=== PATIENT | female | born 1970 | race African-American/Black ===

== ENCOUNTER 2016-09-26 18:18 | Emergency (ER) | payer OTHER ==
[~2016-09-26] VITALS: Ht 170.2 cm; Wt 127.0 kg
[~2016-09-26 18:18] MED LIST: VENTAER INH
[2016-09-26 18:28] VITALS: BP 168/101; PULSE 97; RESP 20; TEMP 98.1; O2SAT 96
[2016-09-26] MEDS ORDERED: GABA300C5 PO (19:18)
[2016-09-26] MEDS ORDERED: FURO1TAB60 PO (19:18)
--- NOTE | 2016-09-26 19:40 | RADRPT ---
EXAM DATE/TIME: 09/26/2016 19:28 [facility] COMPARISON: No previous studies available for comparison. INDICATIONS : Rolled right ankle 4 days ago, pain on anterior ankle at 4th metatarsal. MEDICAL HISTORY : None. SURGICAL HISTORY : None. ENCOUNTER: Initial ACUITY: 4 - 6 days PAIN SCORE: 0/10 LOCATION: Right ankle FINDINGS: There is diffuse soft tissue swelling. No fracture or subluxation demonstrated. 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 CONCLUSION: Soft tissue swelling without fracture. Bairon Marsh MD on September 26, 2016 at 19:38 Board Certified Radiologist. This report was verified electronically.
[2016-09-26] MEDS ORDERED: DICL75TA PO (20:00)
--- NOTE | 2016-09-26 20:05 | PD ---
HPI Chief Complaint: Injury Time Seen by Provider: 20:00 Travel History International Travel<30 days: No Contact w/Intl Traveler<30days: No Traveled to known affect area: No History of Present Illness HPI 46-year-old black female presents to emergency department with complains of right ankle pain after he injury 4 days ago. She states that the pain is moderate and worse with walking. Some relief with elevation. She has been out of work for the last few days. She denies any numbness, tingling or weakness. No other injury. [facility] Past Medical History Narrative Medical Hypertension Diminished Hearing: No Hypertension: Yes Thyroid Disease: Yes Tetanus Vaccination: Unknown ?: Not Social History Alcohol Use: Yes (6OZ DAILY) Tobacco Use: Yes (1 PPD) Substance Use: No Allergies-Medications (Allergen,Severity, Reaction): Coded Allergies: No Known Allergies (Verified , 09/26/16) Reported Meds & Prescriptions Reported Meds & Active Scripts Active Diclofenac Sodium DR (Diclofenac Sodium) 75 Mg Tabdr 75 Mg PO BID Reported Gabapentin 300 Mg Cap 300 Mg PO DAILY Lasix (Furosemide) 40 Mg Tab 40 Mg PO DAILY Review of Systems Except as stated in HPI: all other systems reviewed are Neg General / Constitutional: No: Fever, Chills HENT: No: Vertigo, Lightheadedness Cardiovascular: No: Chest Pain or Discomfort, Palpitations Respiratory: No: Cough, Shortness of Breath Gastrointestinal: No: Nausea, Vomiting Genitourinary: No: Dysuria, Hematuria Musculoskeletal: Positive: Arthralgias, Limited ROM, Pain Skin: No Rash, No Itching Physical Exam Narrative GENERAL: This is a well-nourished, well-developed patient, in no apparent distress. SKIN: No rashes, ecchymoses or lesions. Warm and dry. HEAD: Atraumatic. Normocephalic. EYES: PERRL, EOMI, no discharge or injection. No scleral icterus. EARS: Clear NOSE: Nasal turbinates appear normal. THROAT: Mucosa pink and moist. Airway patent. NECK: Trachea midline. supple, moves head freely. LUNGS: Clear to auscultation. CV: Regular in rhythm. ABDOMEN: Soft nontender. EXT: No clubbing cyanosis. Examination the right lower extremity reveals minimal swelling of the ankle. She complains of pain in the anterior portion of the ankle as well as the deltoid ligaments. No pain over the medial lateral malleolus. No pain in the Achilles or heel. She has some tenderness in the proximal forefoot. No pain in the distal forefoot or toes. Patient is able to ambulate with an antalgic gait. She has intact sensation with good distal pulses. No pain in the knee or hip. The left lower extremity as well as the upper extremities are unremarkable for acute injury or deformity. Data Data Last Documented VS Vital Signs Date Time Temp Pulse Resp B/P Pulse Ox O2 Delivery O2 Flow Rate FiO2 09/26/16 18:28 98.1 97 20 168/101 96 Room Air Orders Ankle, Complete ([id number]) (09/26/16 ) MDM Medical Decision Making Medical Screen Exam Complete: Yes Emergency Medical Condition: Yes Medical Record Reviewed: Yes Interpretation(s) Last 24 hours Impressions Ankle X-Ray 09/26/16 0000 Signed Impressions: Service Date/Time: Monday, September 26, 2016 19:28 - CONCLUSION: Soft tissue swelling without fracture. Bairon Marsh MD Differential Diagnosis MDM: High Differential diagnoses: Fracture, sprain, strain, dislocation, contusion, neurovascular injury Narrative Course X-ray is negative. This is right ankle sprain Diagnosis Primary Impression: Right ankle sprain Qualified Code: S93.421A - Sprain of deltoid ligament of right ankle, initial encounter Patient Instructions: General Instructions Departure Forms: Tests/Procedures, Work Release Special Instructions: Light-duty 1 week. No walking at work 1 week. Additional Instructions: Rest. Elevation. Ice packs for swelling. Phillip wrap and splint. Limited activity. Medications as directed Follow-up with an orthopedist or your doctor in one week. Return to the ER if any problems Med/Other Pt SpecificInfo: Prescription(s) given Scripts Diclofenac Sodium DR 75 Mg Tabdr75 Mg PO BID #20 TAB Prov:Sherwin Holland MD 09/26/16 Disposition: 01 DISCHARGE HOME Condition: Stable Kalen Swartz Sep 26, 2016 20:05
== END 2016-09-26 20:16 | disposition home or self-care (01) ==
LOC: NEPB 18:18
DX: S93.401A Sprain of unspecified ligament of right ankle, initial encounter (principal); I10 Essential (primary) hypertension; E07.9 Disorder of thyroid, unspecified; F17.210 Nicotine dependence, cigarettes, uncomplicated; X58.XXXA Exposure to other specified factors, initial encounter
CPT/HCPCS: 73610; 99283; E0113; L1906

== ENCOUNTER 2016-10-06 04:43 | Emergency (ER) | payer OTHER ==
[~2016-10-06] VITALS: Ht 170.2 cm; Wt 127.0 kg
[~2016-10-06 04:43] MED LIST changes: +DICL75TA PO; +FURO1TAB60 PO; +GABA300C5 PO; -VENTAER INH
[2016-10-06 04:46] VITALS: BP 137/85; PULSE 104; RESP 16; TEMP 98.1; O2SAT 98
--- NOTE | 2016-10-06 07:05 | PD ---
HPI Chief Complaint: Musculoskeletal Complaint Time Seen by Provider: 07:04 Travel History International Travel<30 days: No Contact w/Intl Traveler<30days: No Traveled to known affect area: No History of Present Illness HPI 38-year-old Afro[place] female presents the emergency department status post right ankle injury on 09/26/2016. She was seen at that time and had x-ray showing no obvious fracture. Patient was given a walking stirrup splint. Patient states her pain and swelling continues and is interfering with her ability to work. She describes the pain as aching at an 8/10 while ambulating. Patient was taking ibuprofen but hasn't recently. She's been keeping it elevated and icing as much as possible. Patient works as a [employer] SERVICES [employer] and is having trouble doing her job due to the pain in her right ankle. She has no known drug allergies. PFSH Past Medical History Hx Anticoagulant Therapy: Yes (ASA) Cardiovascular Problems: Yes (HTN) Diminished Hearing: No Hypertension: Yes Thyroid Disease: Yes ?: Not LMP: 2 MONTHS Social History Alcohol Use: Yes (6OZ DAILY) Tobacco Use: Yes (1 PPD) Substance Use: No Allergies-Medications (Allergen,Severity, Reaction): Coded Allergies: No Known Allergies (Verified , 10/06/16) Reported Meds & Prescriptions Reported Meds & Active Scripts Active Diclofenac Sodium DR (Diclofenac Sodium) 75 Mg Tabdr 75 Mg PO BID Reported Gabapentin 300 Mg Cap 300 Mg PO DAILY Lasix (Furosemide) 40 Mg Tab 40 Mg PO DAILY Review of Systems Except as stated in HPI: all other systems reviewed are Neg General / Constitutional: No: Fever Eyes: No: Visual changes HENT: No: Headaches Cardiovascular: No: Chest Pain or Discomfort Respiratory: No: Shortness of Breath Gastrointestinal: No: Abdominal Pain Genitourinary: No: Dysuria Musculoskeletal: Positive: Arthralgias, Limited ROM, Pain (see history present illness.) Skin: No Rash Neurologic: No: Weakness Psychiatric: No: Depression Endocrine: No: Polydipsia Hematologic/Lymphatic: No: Easy Bruising Physical Exam Narrative GENERAL: Patient appears in no acute distress. SKIN: Warm and dry. Normal color. Normal turgor. HEAD: Atraumatic. Normocephalic. EYES: Pupils equal and round. No scleral icterus. No injection or drainage. ENT: No nasal bleeding or discharge. Mucous membranes pink and moist. Pharynx is normal. NECK: Trachea midline. Neck is supple. CARDIOVASCULAR: Regular rate and rhythm. RESPIRATORY: No accessory muscle use. Clear to auscultation. Breath sounds equal bilaterally. MUSCULOSKELETAL: Extremities without clubbing, cyanosis, or edema. No obvious deformities. Patient has generalized swelling over the right ankle with tenderness mainly over the right lateral malleolus. NEUROLOGICAL: Awake and alert. No obvious cranial nerve deficits. Motor grossly within normal limits. Five out of 5 muscle strength in the arms and legs. Normal speech. PSYCHIATRIC: Appropriate mood and affect; insight and judgment normal. Data Data Last Documented VS Vital Signs Date Time Temp Pulse Resp B/P Pulse Ox O2 Delivery O2 Flow Rate FiO2 10/06/16 04:46 98.1 104 16 137/85 98 Room Air Orders Ankle, Complete ([id number]) (10/06/16 07:09) Ice/Cold Pack (10/06/16 07:09) Crutches (10/06/16 08:04) MDM Medical Decision Making Medical Screen Exam Complete: Yes Emergency Medical Condition: Yes Differential Diagnosis Right ankle pain. Right sprained ankle. Possible occult fracture. Narrative Course Patient is medically stable at time of exam. X-ray of the right ankle is obtained. X-ray shows no acute fracture dislocation. Patient is maintained in her stirrup splint. Patient is given crutches for ambulation as needed. Patient is given a prescription for ibuprofen 600 mg 4 times a day #40. Work note is given with restrictions 1 week. Diagnosis Primary Impression: Right ankle sprain Qualified Code: S93.401D - Sprain of right ankle, unspecified ligament, subsequent encounter Referrals: [facility] Patient Instructions: Ankle Sprain (ED), Ankle Sprain Exercises (GEN), General Instructions Departure Forms: Work Release Enter return to work date: Oct 07, 2016 Special Instructions: Patient is to use crutches at work for ambulation due to her ankle sprain 1 week. Additional Instructions: X-ray shows no acute fracture dislocation. Patient is maintained in her stirrup splint. Patient is given crutches for ambulation as needed. Patient is given a prescription for ibuprofen 600 mg 4 times a day #40. Work note is given with restrictions 1 week. Med/Other Pt SpecificInfo: Prescription(s) given Disposition: 01 DISCHARGE HOME Condition: Stable Flaquito Doss Oct 06, 2016 07:05
--- NOTE | 2016-10-06 08:00 | RADRPT ---
EXAM DATE/TIME: 10/06/2016 07:47 [facility] COMPARISON: No previous studies available for comparison. INDICATIONS : Patient rolled her ankle ten days ago. MEDICAL HISTORY : None. SURGICAL HISTORY : None. ENCOUNTER: Initial ACUITY: 2 weeks PAIN SCORE: 10/10 LOCATION: Right Ankle. FINDINGS: Three view exam was performed of the right ankle. The bony structures are in normal alignment. No e vidence of fracture, dislocation. Extensive soft tissue swelling. The ankle mortise is intact. No r adiopaque foreign bodies are seen. Bony mineralization is normal. CONCLUSION: Soft tissue swelling without fracture. Hernan Moulton MD on October 06, 2016 at 7:58 Board Certified Radiologist. This report was verified electronically.
[2016-10-06] MEDS ORDERED: IBUP-232 PO (08:12)
== END 2016-10-06 08:32 | disposition home or self-care (01) ==
LOC: NEPB 04:43
DX: S93.401D Sprain of unspecified ligament of right ankle, subsequent encounter (principal); Z87.828 Personal history of other (healed) physical injury and trauma
CPT/HCPCS: 73610; 99283; E0113